=== PATIENT | male | born 1950 | race Caucasian/White ===

== ENCOUNTER 2019-10-22 18:17 | Inpatient (IN) | payer MEDICARE ==
[~2019-10-22] VITALS: Ht 175.3 cm; Wt 96.2 kg
[~2019-10-22 18:17] MED LIST: ASPI-1169 PO; CARV12.52 PO; CLON0.3T PO; CORDURA PO; METF850T PO; NIFE-35 PO; ROPI1TAB2 PO; ROSU10TA2 PO; TRAM50TA2 PO; VALS1TAB52 PO
--- NOTE | 2019-10-22 18:35 | NUR ---
PT CAME INTO THE ED C/O L SIDED CHEST DISCOMFORT, "IRREGULAR HEARTBEAT" HIGH BLOOD PRESSURE SINCE LAST NIGHT. PT AAOX4, VSS, BREWATHING EVEN AND UNLABORED ON ROOM AIR W/ NAD NOTED. PT CONNECTED TO THE MONITOR AND POX
--- NOTE | 2019-10-22 18:37 | NUR ---
EKG AT BEDSIDE
[2019-10-22 18:56] LABS: BASOPHILS # (AUTO) 0.1 /CMM (0.0-0.2); BASOPHILS % (AUTO) 1.1 % (0.0-2.0); EOSINOPHILS % (AUTO) 2.5 % (0.0-6.0); HEMATOCRIT 43 % (39-51); HEMOGLOBIN 14.5 g/dL (13.5-17.5); LYMPHOCYTES # (AUTO) 1.9 /CMM (0.8-4.8); MEAN CORPUSCULAR HGB CONC 33 g/dl (31.0-36.0); MEAN CORPUSCULAR VOLUME 88 fL (80-96); MONOCYTES # (AUTO) 0.5 /CMM (0.1-1.30); MONOCYTES % (AUTO) 5.8 % (2.0-12.0); NEUTROPHILS # (AUTO) 5.1 /CMM (1.8-8.9); NEUTROPHILS % (AUTO) 65.6 % (43.0-81.0); PLATELET COUNT (AUTO) 201 /CMM (150-450); RED BLOOD CELL COUNT(AUTO) 4.93 MIL/uL (4.5-6.0); WHITE BLOOD COUNT (AUTO) 7.7 K/uL (4.3-11.0)
--- NOTE | 2019-10-22 18:57 | NUR ---
BLOOD DRAWN AND SENT TO LAB
--- NOTE | 2019-10-22 19:01 | NUR ---
REPORT GIVEN TO HEMA WREN FOR SHAI
[2019-10-22 19:06] LABS: CALCIUM, SERUM 9.1 mg/dL (8.5-10.1); CREATININE 1.3 mg/dL (0.6-1.3); POTASSIUM 3.3 mmol/L (3.5-5.1)
--- NOTE | 2019-10-22 19:22 | NUR ---
AAOX4. NOT IN ANY DISTRESS. NO SOB. BREATHING EVENLY AND UNLABORED. CONNECTED TO MONITOR.
[2019-10-22 20:00] VITALS: BP 121/73
--- NOTE | 2019-10-22 20:34 | NUR ---
Merrill rosado in ED - 10/22/19 at 2057 by RON REPORT GIVEN TO LUCERO FORD FOR SHAI.
--- NOTE | 2019-10-22 20:34 | NUR ---
REPORT GIVEN TO LUCERO FORD FOR SHAI.
[2019-10-22 21:00] VITALS: BP 131/70
[2019-10-22] MEDS ORDERED: MAGNESIUM HYDROXIDE 30 ML UDC PO PRN (21:00)
[2019-10-22] MEDS ORDERED: Z GUARD REMEDY 2 OZ OINT TP PRN (21:00)
[2019-10-22] MEDS ORDERED: ACETAMINOPHEN 325 MG TABLET PO PRN (21:00)
[2019-10-22] MEDS ORDERED: ZOLPIDEM TARTRATE 5 MG TABLET PO PRN (21:00)
[2019-10-22] MEDS ORDERED: MAG HYDROX/AL HYDROX/SIMETH 30 ML UDC PO PRN (21:00)
[2019-10-22] MEDS ORDERED: ONDANSETRON HCL/PF 4 MG/2 ML VIAL IVP PRN (21:00)
[2019-10-22] MEDS ORDERED: HYDROCODONE/APAP 5/325MG 1 EACH TABLET PO PRN (21:00)
--- NOTE | 2019-10-22 21:30 | NUR ---
MANAGER MILITARYROVING DEPARTMENT END FINDER NOTES ADMITTED A 69 Y/O MALE PATIENT, FROM ER TRANSPORTED VIA GURNEY, ALERT ORIENTED X4, DENIES ANY PAIN OR DISCOMFORT, PERIPHERAL IV ACCESS ON HIS LEFT HAND G#20, INTACT AND PATENT, ORIENTED TO UNIT, HIS ROOM AND THE USE OF CALL LIGHT, CONNECTED TO TELE MONITOR READ SINUS WITH PACs/ AFIB CONTROLLLED, DENIES SOB, SATING 98% ON ROOM AIR, NO SIGNS OF CARDIAC OR RESPIRATORY DISTRESS NOTED, SAFETY MEASURES IN PLACED, ALL NEEDS ATTENDED WILL CONTINUE TO MONITOR ACCORDINGLY.
--- NOTE | 2019-10-22 21:32 | NUR ---
SENIOR TELLER NOTES INITIAL PHYSICAL ASSESSMENT AND DOCUMENTATION INITIATED, SKIN IS INTACT NO SKIN ISSUE NOTED. WILL MONITOR.
[2019-10-22 21:37] LABS: MAGNESIUM 1.6 mg/dL (1.8-2.4); PHOSPHORUS 3.3 mg/dL (2.5-4.9)
[2019-10-22] MEDS: CARVEDILOL 12.5 MG TABLET PO SCH (21:51)
[2019-10-22] MEDS: METFORMIN 850 MG TABLET PO SCH (21:52)
[2019-10-22] MEDS ORDERED: ASPIRIN 325 MG TABLET PO ONE (22:00)
[2019-10-23] VITALS (9 sets, daily range): BP systolic 116–144; BP diastolic 68–92
[2019-10-23] MEDS ORDERED: POTASSIUM CHLORIDE 20 MEQ TAB.PRT.SR PO ONE (01:00)
[2019-10-23] MEDS: Magnesium 1GM/D5W 100ML PREMIX 100 ML IV SCH ×2 (01:04→02:07)
[2019-10-23 06:24] LABS: BASOPHILS % (AUTO) 0.7 % (0.0-2.0); EOSINOPHILS % (AUTO) 6.2 % (0.0-6.0); HEMATOCRIT 39 % (39-51); HEMOGLOBIN 13.3 g/dL (13.5-17.5); LYMPHOCYTES # (AUTO) 2.6 /CMM (0.8-4.8); MEAN CORPUSCULAR HGB CONC 34 g/dl (31.0-36.0); MEAN CORPUSCULAR VOLUME 88 fL (80-96); MONOCYTES # (AUTO) 0.5 /CMM (0.1-1.30); MONOCYTES % (AUTO) 7.5 % (2.0-12.0); NEUTROPHILS # (AUTO) 2.7 /CMM (1.8-8.9); NEUTROPHILS % (AUTO) 43.6 % (43.0-81.0); PLATELET COUNT (AUTO) 188 /CMM (150-450); RED BLOOD CELL COUNT(AUTO) 4.48 MIL/uL (4.5-6.0); WHITE BLOOD COUNT (AUTO) 6.2 K/uL (4.3-11.0)
--- NOTE | 2019-10-23 06:29 | NUR ---
CONTRACT RECRUITER NOTES ALL NEEDS ATTENDED AND MET, ABLE TO REST AND SLEPT AT INTERVALS, MAGNESIUM REPLACED, POTASSIUM REPLACED WITH KDUR TABS 40 MEQS, SAFETY MEASURES IN PLACED, DENIES ANY PAIN OR DISCOMFORT AT THIS TIME, TELE MONITOR READS, SINUS AURORA WITH PACs 58-60s. CALL LIGHT WITH IN EASY REACH. WILL ENDORSE TO AM NURSE FOR CONTINUITY OF CARE.
[2019-10-23 06:41] LABS: ALBUMIN 3.4 g/dL (3.4-5.0); BILIRUBIN,TOTAL 0.5 mg/dL (0.2-1.0); CALCIUM, SERUM 8.5 mg/dL (8.5-10.1); CREATININE 1.3 mg/dL (0.6-1.3); MAGNESIUM 2.1 mg/dL (1.8-2.4); PHOSPHORUS 3.7 mg/dL (2.5-4.9); POTASSIUM 3.6 mmol/L (3.5-5.1); TOTAL PROTEIN, SERUM 6.7 g/dL (6.4-8.2)
--- NOTE | 2019-10-23 07:19 | NUR ---
LITHOPONE MILL WORKER OPENING NOTES PATIENT RECEIVED IN BED AWAKE IN NO ACUTE SIGNS OF DISTRESS. A/O X4. ABLE TO MAKE NEEDS KNOWN, NO C/O PAIN OR ANY DISCOMFORTS AT THIS TIME. VERBALIZED UNDERSTANDING TO NOT CONSUME ANY FOOD OR FLUIDS BEFORE HEALTHCARE ECONOMICS CONSULTANT CHECK UP. ON ROOM AIR, BREATHING EVEN AND UNLABORED. ON TELEMONITORING WITH CURRENT READING OF AFIB CONTROLLED AND SB WITH HR OF 56-60, NO C/O CARDIAC DISTRESS VOICED AT THIS TIME. IV ACCESS ON LEFT HAND G#20 INTACT AND PATENT. BED IN LOW LOCKED POSITION WITH SIDE RAILS UP X2. CALL LIGHT WITHIN REACH. WILL CONTINUE TO MONITOR PT ACCORDINGLY.
[2019-10-23 07:54] LABS: THYROID STIMULATING HORMONE 1.685 uIU/mL (0.358-3.74)
[2019-10-23] MEDS ORDERED: Medication Not On Formulary EA (Rosuvastatin Calcium (Crestor) 1 TAB) PO SCH (09:00)
[2019-10-23] MEDS ORDERED: VALSARTAN 80 MG TABLET PO SCH (09:00)
[2019-10-23] MEDS ORDERED: HYDROCHLOROTHIAZIDE 25 MG TABLET PO SCH (09:00)
[2019-10-23] MEDS: ASPIRIN 81 MG TAB.CHEW PO SCH (09:03)
[2019-10-23] MEDS: CARVEDILOL 12.5 MG TABLET PO SCH ×2 (09:04→21:00)
[2019-10-23] MEDS: NIFEdipine XL (30MG) 30 MG TAB PO SCH (09:05)
[2019-10-23] MEDS: ropiniROLE 0.5 MG TABLET PO SCH (17:25)
--- NOTE | 2019-10-23 18:37 | NUR ---
TELE/RN CLOSING NOTES PATIENT IN BED, AWAKE, WATCHING TV AND USING HIS PHONE. PATIENT IS COMFORTABLE, ON ROOM AIR WITH NO SIGNS OF DISTRESS OR SOB. PATIENT ON CARDIAC MONITORING. CURRENT READING OF SINUS RHYTHM WITH HEART RATE IN THE 60S. NO COMPLAINS OF CARDIAC DISTRESS THROUGHOUT THE DAY. IV SL ON L HAND G#20 IS POTENT AND INTACT. PATIENT IS SCHEDULED FOR CTA WITH CONTRAST PROCEDURE TOMORROW 10/24/19. PATIENT A/O X4, IN CLEAR STATE OF MIND. CONSENT SIGNED AND PATIENT VERBALIZED UNDERSTANDING OF THE PROCEDURE. ALL SAFETY PRECAUTIONS ARE IN PLACE: BED IN LOW POSITION, RAILS UP X2, HOB ELEVATED AT 30, CALL LIGHT WITHIN REACH. WILL ENDORSE TO TURNER OFF.
--- NOTE | 2019-10-23 19:05 | NUR ---
SALESPERSON MEN'S AND BOYS' CLOTHING OPENING NOTES RECEIVED PATIENT IN BED AWAKE ALERT AND ORIENTED X4, RESPIRATIONS EVEN AND UNLABORED WITH EQUAL RISE AND FALL OF CHEST, AT THIS TIME DENIES ANY PAIN OR PALPITATIONS, ON HUMAN GEOGRAPHY INSTRUCTOR SB-SR 58-60, ASYMPTOMATIC. URINAL AT BEDSIDE WITHIN REACH, IV SITE TO LEFT HAND #20G INTACT AND PATENT NO REDNESS NO INFILTRATION PRESENT,ORIENTED TO STAFF AND CALL LIGHT AND KEPT WITHIN REACH, SAFETY PRECAUTIONS IN PLACE LOW BED AND LOCKED, ALL NEEDS ATTENDED AT THIS TIME, WILL CONTINUE TO MONITOR AND ATTEND TO NEEDS, PT IS AWARE AND UNDERSTANDS NPO STATUS FOR AM PROCEDURE.
--- NOTE | 2019-10-23 21:32 | NUR ---
DIVISION OPERATIONS MANAGER NOTES PER HOSPITALIST ELMO CARNES HOLD METFORMIN TONIGHT FOR PROCEDURE IN AM CARDIC CATHETERIZATION, MADE AWARE REGARDING COREG AND HEART RATE AT 58 AT THIS TIME ASYMPTOMATIC AND MADE AWARE OF CURRENT V.S WNL AND COREG DOSE INSTRUCTIONS TO NOTIFY MD IS HR 60 OR LESS, NO FURTHER ORDERS AT THIS TIME.
[2019-10-23] MEDS: METFORMIN 850 MG TABLET PO SCH (21:37)
[2019-10-23] MEDS ORDERED: ATORVASTATIN 10 MG TABLET PO SCH (22:00)
[2019-10-24] VITALS (19 sets, daily range): BP systolic 127–159; BP diastolic 62–99
--- NOTE | 2019-10-24 06:17 | NUR ---
MUSIC ENGRAVER CLOSING NOTES PATIENT IN BED SLEEPING EASILY AROUSABLE, ALERT AND ORIENTED X4, RESPIRATIONS EVEN AND UNLABORED WITH EQUAL RISE AND FALL OF CHEST, AT THIS TIME DENIES ANY PAIN OR PALPITATIONS, ON REGULATORY LEADER SB 58, ASYMPTOMATIC. URINAL AT BEDSIDE WITHIN REACH 400ML OUTPUT, IV SITE TO LEFT HAND #20G INTACT AND PATENT NO REDNESS NO INFILTRATION PRESENT, CALL LIGHT KEPT WITHIN REACH, SAFETY PRECAUTIONS IN PLACE LOW BED AND LOCKED, ALL NEEDS ATTENDED AT THIS TIME, WILL CONTINUE TO MONITOR AND ATTEND TO NEEDS, PT IS AWARE AND UNDERSTANDS NPO STATUS FOR AM PROCEDURE.HAS BEEN NPO SINCE MIDNIGHT, ALL NEEDS WERE ATTENDED. WILL CONTINUE TO MONITOR AND ENDORSE TO NEXT SHIFT.
--- NOTE | 2019-10-24 06:30 | NUR ---
VACUUM CLEANER ASSEMBLER NOTES STATES SKIN IS CLEAR AND FREE OF WOUNDS.
[2019-10-24 06:34] LABS: BASOPHILS % (AUTO) 0.5 % (0.0-2.0); EOSINOPHILS % (AUTO) 6.2 % (0.0-6.0); HEMATOCRIT 41 % (39-51); HEMOGLOBIN 13.8 g/dL (13.5-17.5); LYMPHOCYTES # (AUTO) 2.5 /CMM (0.8-4.8); LYMPHOCYTES % (AUTO) 40.2 % (20.0-44.0); MEAN CORPUSCULAR HGB CONC 34 g/dl (31.0-36.0); MEAN CORPUSCULAR VOLUME 88 fL (80-96); MONOCYTES # (AUTO) 0.4 /CMM (0.1-1.30); MONOCYTES % (AUTO) 6.7 % (2.0-12.0); NEUTROPHILS # (AUTO) 2.9 /CMM (1.8-8.9); NEUTROPHILS % (AUTO) 46.4 % (43.0-81.0); PLATELET COUNT (AUTO) 191 /CMM (150-450); RED BLOOD CELL COUNT(AUTO) 4.66 MIL/uL (4.5-6.0); WHITE BLOOD COUNT (AUTO) 6.3 K/uL (4.3-11.0)
[2019-10-24 06:43] LABS: CALCIUM, SERUM 8.5 mg/dL (8.5-10.1); CREATININE 1.2 mg/dL (0.6-1.3); MAGNESIUM 1.9 mg/dL (1.8-2.4); PHOSPHORUS 3.2 mg/dL (2.5-4.9); POTASSIUM 3.6 mmol/L (3.5-5.1)
--- NOTE | 2019-10-24 07:10 | NUR ---
HIDE AND SKIN COLERER NOTES PATIENT IN BED ALERT ORIENTED X 4.NO ACUTE DISTRESS NOTED. BREATHING UNLABORED. NO SOB NOTED. DENIED ANY PAIN. SAFETY MEASURES IN PLACE. CALL LIGHT WITHIN REACH. WILL CONTINUE TO MONITOR ACCORDINGLY.
[2019-10-24] MEDS: CARVEDILOL 12.5 MG TABLET PO SCH ×2 (09:00→21:15)
[2019-10-24] MEDS ORDERED: HYDROCHLOROTHIAZIDE 25 MG TABLET PO SCH ×2 (09:00)
[2019-10-24] MEDS: ASPIRIN 81 MG TAB.CHEW PO SCH (09:00)
[2019-10-24] MEDS ORDERED: IV SET PRIMARY PUMP SET 1 EA INFUS.SET MC ONE (09:07)
[2019-10-24] MEDS ORDERED: IV NS 0.9% 1,000 ML ONE (09:07)
[2019-10-24] MEDS ORDERED: IODIXANOL 150 ML IV ONE ×2 (09:08→12:19)
--- NOTE | 2019-10-24 09:20 | NUR ---
BEAD FLIPPER NOTES CLARIFIED WITH DR MCKEON REGARDING ASPIRIN , PATIENT FOR CARDIAC CATHETERIZATION, SAID TO HOLD ASPIRIN DOSE TODAY.
--- NOTE | 2019-10-24 09:25 | NUR ---
MS RN NOTES HELD COREG AND HYDRODIURIL DUE TO PULSE RATE 57, DR RAPHAEL NOTIFIED SAID OK.
[2019-10-24] MEDS: NIFEdipine XL (30MG) 30 MG TAB PO SCH (09:27)
[2019-10-24] MEDS: VALSARTAN 80 MG TABLET PO SCH (09:28)
[2019-10-24] MEDS ORDERED: VERAPAMIL HCL IV 5 MG/2 ML VIAL ONE (10:46)
[2019-10-24] MEDS ORDERED: LIDOCAINE HCL/PF 1% 30 ML SDV ONE (10:46)
[2019-10-24] MEDS ORDERED: NITROGLYCERIN ICAR 1,000 MCG/10 ML VIAL ICAR ONE (10:46)
[2019-10-24] MEDS ORDERED: IV NS 0.9% 50 ML IV ONE ×2 (10:47→13:12)
--- NOTE | 2019-10-24 11:00 | NUR ---
PROJECT COACH NOTES PATIENT TRANSPORTED FOR CARDIAC CATHETERIZATION IN STABLE CONDITION. ALERT ORIENTED X 4.
[2019-10-24] MEDS ORDERED: FENTANYL PF 100MCG/2ML AMPUL ONE (11:19)
[2019-10-24] MEDS ORDERED: MIDAZOLAM HCL 2 MG/2ML VIAL ONE (11:19)
[2019-10-24] MEDS ORDERED: HEPARIN SODIUM, PORCINE 5000 UNITS/1 ML VIAL ONE (11:33)
[2019-10-24] MEDS ORDERED: ASPIRIN 325 MG TABLET ONE (12:18)
[2019-10-24] MEDS ORDERED: TICAGRELOR 90 MG TABLET PO ONE (12:18)
[2019-10-24] MEDS ORDERED: IODIXANOL 320MG/ML 50 ML IV ONE (12:19)
[2019-10-24] MEDS ORDERED: IODIXANOL 320MG/ML 100 ML IV ONE (13:27)
--- NOTE | 2019-10-24 14:16 | NUR ---
RN INITIAL NOTES RECEIVED PT AWAKE, A/OX4 FROM BARGE HAND. SP LEFT HEART CATH WITH SELECTIVE LEFT AND RIGHT CORONARY ANGIOGRAPHY. TR BAND ON RIGHT WRIST. NO SIGNS OF BLEEDING NOTED. PALPABLE PULSE NOTED. NO CIRCULATORY IMPAIRMENT NOTED. IV LINE IN PLACE. FLUSHED WITH NS. WILL FOLLOW ALL ORDERS POST CARDIAC CATH PER PROTOCOL. PT ORIENTED TO ROOM AND USE OF CALL LIGHT. WILL CLOSELY MONITOR
--- NOTE | 2019-10-24 14:25 | NUR ---
MS RN NOTES ALL BELONGINGS TAKEN TO THE PATIENT IN ICU ROOM 254.
[2019-10-24] MEDS: IV NS 0.9% 1,000 ML IV PRN ×2 (14:42→17:30)
[2019-10-24] MEDS ORDERED: IV NS 0.9% 1,000 ML BAG IV PRN (15:00)
--- NOTE | 2019-10-24 16:35 | NUR ---
RN NOTES TR BAND ON RIGHT WRIST COMPLETELY REMOVED. NO ACTIVE BLEEDING NOTED. GOOD PALPABLE PULSE NOTED. NO CIRCULATORY IMPAIRMENT NOTED. COVERED WITH DRY DRESSING. VS WNL. WILL MONITOR
[2019-10-24] MEDS: ropiniROLE 0.5 MG TABLET PO SCH (17:10)
--- NOTE | 2019-10-24 18:33 | NUR ---
RN CLOSING NOTES NO SIGNIFICANT CHANGE NOTED. PT A/OX4, ON ROOM AIR. NO SOB NOTED. DENIES ANY PAIN. SP LEFT HEART CATH WITH SELECTIVE LEFT AND RIGHT CORONARY ANGIOGRAPHY. NO SIGNS OF BLEEDING ON RIGHT WRIST. GOOD PALPABLE PULSE. NO CIRCULATORY IMPAIRMENT NOTED. IVF INFUSING. KEPT COMFORTABLE. ALL NEEDS ATTENDED AND MET. WILL PLACE NPO POST MIDNIGHT FOR POSSIBLE HEART CATH IN AM. CALL LIGHT WITHIN REACH. WILL ENDORSE TO CONTINUITY OF CARE.
[2019-10-24] MEDS: TICAGRELOR 90 MG TABLET PO SCH (18:45)
--- NOTE | 2019-10-24 20:00 | NUR ---
TOY DEPARTMENT MANAGER - NOTES - PT A/OX4, ON ROOM AIR. NO SOB NOTED. DENIES ANY PAIN. SP LEFT HEART CATH WITH SELECTIVE LEFT AND RIGHT CORONARY ANGIOGRAPHY. NO SIGNS OF BLEEDING ON RIGHT WRIST. GOOD PALPABLE PULSE. NO CIRCULATORY IMPAIRMENT NOTED. IVF INFUSING. KEPT COMFORTABLE. ALL NEEDS ATTENDED AND MET. WILL PLACE NPO POST MIDNIGHT FOR POSSIBLE HEART CATH IN AM. CALL LIGHT WITHIN REACH. WILL ENDORSE TO CONTINUITY OF CARE.
[2019-10-24] MEDS: METFORMIN 850 MG TABLET PO SCH (21:15)
[2019-10-24] MEDS: ATORVASTATIN 40 MG TABLET PO SCH (21:15)
[2019-10-25] VITALS (23 sets, daily range): BP systolic 108–157; BP diastolic 49–91
[2019-10-25 04:21] LABS: BASOPHILS # (AUTO) 0.1 /CMM (0.0-0.2); BASOPHILS % (AUTO) 0.7 % (0.0-2.0); EOSINOPHILS % (AUTO) 4.6 % (0.0-6.0); HEMATOCRIT 41 % (39-51); HEMOGLOBIN 13.8 g/dL (13.5-17.5); LYMPHOCYTES # (AUTO) 2.2 /CMM (0.8-4.8); MEAN CORPUSCULAR HGB CONC 34 g/dl (31.0-36.0); MEAN CORPUSCULAR VOLUME 89 fL (80-96); MONOCYTES # (AUTO) 0.6 /CMM (0.1-1.30); MONOCYTES % (AUTO) 6.5 % (2.0-12.0); NEUTROPHILS # (AUTO) 5.5 /CMM (1.8-8.9); NEUTROPHILS % (AUTO) 63.2 % (43.0-81.0); PLATELET COUNT (AUTO) 203 /CMM (150-450); RED BLOOD CELL COUNT(AUTO) 4.62 MIL/uL (4.5-6.0); WHITE BLOOD COUNT (AUTO) 8.6 K/uL (4.3-11.0)
[2019-10-25 04:35] LABS: CALCIUM, SERUM 8.4 mg/dL (8.5-10.1); CREATININE 1.1 mg/dL (0.6-1.3); POTASSIUM 3.7 mmol/L (3.5-5.1)
[2019-10-25] MEDS: IV NS 0.9% 1,000 ML IV PRN ×2 (05:26→09:10)
[2019-10-25] MEDS ORDERED: IODIXANOL 150 ML IV ONE (06:18)
[2019-10-25] MEDS ORDERED: IV NS 0.9% 1,000 ML ONE (06:21)
[2019-10-25] MEDS ORDERED: IV SET PRIMARY PUMP SET 1 EA INFUS.SET MC ONE (06:22)
[2019-10-25] MEDS ORDERED: IV NS 0.9% 50 ML IV ONE (06:24)
[2019-10-25] MEDS ORDERED: HEPARIN SODIUM, PORCINE 5000 UNITS/1 ML VIAL ONE (06:47)
[2019-10-25] MEDS ORDERED: ropiniROLE 0.5 MG TABLET PO STA (06:47)
[2019-10-25] MEDS ORDERED: VERAPAMIL HCL IV 5 MG/2 ML VIAL ONE (06:47)
[2019-10-25] MEDS ORDERED: NITROGLYCERIN ICAR 1,000 MCG/10 ML VIAL ICAR ONE (06:48)
[2019-10-25] MEDS ORDERED: LIDOCAINE HCL/PF 1% 30 ML SDV ONE (06:56)
--- NOTE | 2019-10-25 06:56 | NUR ---
pt awake alert going for heart cath right now, pt has his phone with him, the rest of his belongings are at bedside
[2019-10-25] MEDS ORDERED: IODIXANOL 320MG/ML 50 ML IV ONE (06:57)
[2019-10-25] MEDS ORDERED: MIDAZOLAM HCL 2 MG/2ML VIAL ONE (07:00)
[2019-10-25] MEDS ORDERED: FENTANYL PF 100MCG/2ML AMPUL ONE (07:00)
[2019-10-25] MEDS ORDERED: ASPIRIN 81 MG TAB.CHEW ONE (07:13)
[2019-10-25] MEDS ORDERED: TICAGRELOR 90 MG TABLET PO ONE (07:13)
[2019-10-25] MEDS: TICAGRELOR 90 MG TABLET PO SCH (07:15)
[2019-10-25] MEDS: ASPIRIN 81 MG TAB.CHEW PO SCH (07:15)
[2019-10-25] MEDS ORDERED: IV NS 0.9% 250 ML IV ONE (07:54)
[2019-10-25] MEDS ORDERED: NOREPINEPHRINE 4 MG/4 ML AMPUL IV ONE ×2 (07:55→08:02)
[2019-10-25] MEDS ORDERED: IV D5W 0 ML IV ONE (08:05)
[2019-10-25] MEDS ORDERED: IODIXANOL 320MG/ML 100 ML IV ONE (08:06)
[2019-10-25] MEDS: CARVEDILOL 12.5 MG TABLET PO SCH ×2 (09:00→21:15)
[2019-10-25] MEDS: VALSARTAN 80 MG TABLET PO SCH (09:10)
[2019-10-25] MEDS: NIFEdipine XL (30MG) 30 MG TAB PO SCH (09:11)
--- NOTE | 2019-10-25 11:08 | NUR ---
RN NOTE 0700: Received report from previous shift nurse. Patient is on Cardiac cath procedure. 0900: Patient back to room form cardiac cath, A/Ox4. With right TR band reading 13mL of air per Carmen GARRIDO, to be deflated 3-5mL by 1035. 0920: Served cardiac diet as ordered, advised patient not to move right hand much for now, patient verbalized understanding. Restarted on IVF NS @ 150. Noted with 300mL tan colored urine, able to use urinal. 1000: Noted with minimal bleeding, placed 1mL air, total of 14mL. Right hand still noted with sensory and able to move fingers. 1045: Removed 3mL, now 11mL air on TR band. 1100: Removed 3mL, now 8mL on TR band, noted with very minimal bleeding, will monitor.
--- NOTE | 2019-10-25 13:50 | NUR ---
RN NOTE 1145: Removed TR band, no bleeding noted, applied small dry and transparent dressing. Will continue to monitor. Patient has been talking to CM and CM talking to Dr. Alvarado re: Kartik, but patient wanted to change to Plavix instead, MD aware. 1330: No any significant changes noted. Kept clean, warm and dry. Needs attended. Kept call light at reach, will continue to monitor.
[2019-10-25] MEDS ORDERED: CLOPIDOGREL BISULFATE 300 MG TABLET PO ONE (17:00)
[2019-10-25] MEDS ORDERED: CLOPIDOGREL BISULFATE 75 MG TABLET PO ONE (17:00)
--- NOTE | 2019-10-25 18:23 | NUR ---
RN NOTE No any significant changes noted. VSS. No c/o CP or any discomfort. Tolerated diet. No bleeding on the right radial SP cardiac cath site. Does not want to have Requip at this time and wants to take it later, will leave the 1800 dose open to be given later.
--- NOTE | 2019-10-25 20:00 | NUR ---
RN NOTES RECEIVED PATIENT AWAKE ON BED, AOX 4 SR ON TELE MONITOR. NO SOB OR COMPLAINED OF PALPITATION NOR CHEST PAIN AT THIS TIME. PATIENT IS HURRIEDLY WANTED TO GO TO THE BATHROOM FOR BM ASSISTED TO THE BATHROOM AND AMBULATE WELL. RIGHT RADIAL CLEAN AND WITH DRESSING INTACT AND NO BLEEDING. WITH IV SITE ON LH G20 HL. INTACT AND PATENT. PATIENT IS ASSISTED TO THE BATHROOM AND GO BACK TO BED IN STABLE CONDITION NO CHANGE MENTAL STATUS. KEPT PT CLEAN AND DRY. INSTRUCTED TO USE CALL LIGHT FOR ASSISTANCE AND VERBALIZED UNDERSTANDING. WILL CONTINUE TO MONITOR.
[2019-10-25] MEDS: ropiniROLE 0.5 MG TABLET PO SCH (21:14)
[2019-10-25] MEDS: METFORMIN 850 MG TABLET PO SCH (21:14)
[2019-10-25] MEDS: ATORVASTATIN 40 MG TABLET PO SCH (21:16)
[2019-10-26] VITALS (11 sets, daily range): BP systolic 105–146; BP diastolic 56–90
[2019-10-26] MEDS ORDERED: INSULIN REGULAR, HUMAN 100 UNIT/ML 3 ML VIAL SQ ONE (01:30)
[2019-10-26 04:25] LABS: BASOPHILS % (AUTO) 0.5 % (0.0-2.0); EOSINOPHILS % (AUTO) 4.1 % (0.0-6.0); HEMATOCRIT 38 % (39-51); LYMPHOCYTES # (AUTO) 2.1 /CMM (0.8-4.8); LYMPHOCYTES % (AUTO) 28.3 % (20.0-44.0); MEAN CORPUSCULAR HGB CONC 34 g/dl (31.0-36.0); MEAN CORPUSCULAR VOLUME 88 fL (80-96); MONOCYTES # (AUTO) 0.4 /CMM (0.1-1.30); MONOCYTES % (AUTO) 5.6 % (2.0-12.0); NEUTROPHILS # (AUTO) 4.6 /CMM (1.8-8.9); NEUTROPHILS % (AUTO) 61.5 % (43.0-81.0); PLATELET COUNT (AUTO) 195 /CMM (150-450); RED BLOOD CELL COUNT(AUTO) 4.33 MIL/uL (4.5-6.0); WHITE BLOOD COUNT (AUTO) 7.5 K/uL (4.3-11.0)
[2019-10-26 04:37] LABS: CREATININE 1.1 mg/dL (0.6-1.3); POTASSIUM 3.5 mmol/L (3.5-5.1)
--- NOTE | 2019-10-26 07:00 | NUR ---
RN NOTES PATIENT ASLEEP WELL ON BED. BREATHING EVEN AND UNLABORED. VSS. NSR ON TELE MONITOR. NO SOB OR DISTRESS ON ROOM AIR. AFEBRILE. AMBULATE TO THE BATHROOM FOR BOWEL. ALL DUE MEDICINE ADMINISTERED ORDERED. KEPT PT CLEAN AND DRY. ALL NEEDS ATTENDED. CALL LIGHT KEPT WITHIN EASY REACH.
[2019-10-26] MEDS: POTASSIUM CHLORIDE 20 MEQ TAB.PRT.SR PO SCH ×2 (07:19→08:35)
[2019-10-26] MEDS ORDERED: PNEUMOCOCCAL 23-VAL P-SAC VAC 0.5 ML VIAL SQ ONE (08:30)
[2019-10-26] MEDS ORDERED: INFLUENZA VACCINE 2019-20 0.5 ML DISP.SYRIN IM ONE (08:30)
[2019-10-26] MEDS: ASPIRIN 81 MG TAB.CHEW PO SCH (08:35)
[2019-10-26] MEDS: NIFEdipine XL (30MG) 30 MG TAB PO SCH (08:35)
[2019-10-26] MEDS: CARVEDILOL 12.5 MG TABLET PO SCH (08:36)
[2019-10-26] MEDS: VALSARTAN 80 MG TABLET PO SCH (08:36)
[2019-10-26] MEDS ORDERED: CLOPIDOGREL BISULFATE 75 MG TABLET PO SCH (09:00)
--- NOTE | 2019-10-26 09:46 | NUR ---
07-RECEIVED PATIENT FROM RN.DR ANTONIO SPOKE TO PATIENT REGARDING PLAN OF CARE, PATIENT IS CLEARED FOR DISCHARGE BY DR ANTONIO. PATIENT AWAKE, ALERT, DENIES PAIN, NO BLEED NOTED . PER REPORT, PATIENT AMBULATED LAST NIGHT. 929-AWAKE, ALERT. NO SIGN OF PAIN.
[2019-10-26] MEDS ORDERED: CLOP75TA15 PO (10:08)
[2019-10-26] MEDS ORDERED: ROSU20TA2 PO (10:08)
--- NOTE | 2019-10-26 13:17 | NUR ---
RN NOTES 1100- PATIENT SEEN BY DR. MICK MD DISCUSSED WITH PATIENT PLAN OF CARE. PATIENT WANTING TO GO HOME. INSTRUCTIONS GIVEN TO PATIENT. NO BLEEDING NOTED. 1315-PATIENT FOR HOME. DR CARRANZA SPOKE TO PATIENT ABOUT PATIENT MEDS. PATIENT VERBALIZED UNDERSTANDING WHEN REVIEWED WITH HIM Addendum: 10/26/19 at 1333 by GRAZYNA KELLEY RN ADDENDUM: PER DOCTOR BARTON, PATIENT MAY GO HOME BY HIMSELF
== END 2019-10-26 13:07 | disposition home or self-care (01) | DRG 247 ==
LOC: ER 18:17 → TELE 20:11 → MED 10-24 09:33 → ICU 10-24 11:04
PROVIDERS: ADMIT Hospitalist; ATTEND Family Medicine
PROC: 4A023N7 Measurement of Cardiac Sampling and Pressure, Left Heart, Percutaneous Approach (ICD-10-PCS; principal; 2019-10-24)
PROC: 0270356 Dilation of Coronary Artery, One Artery, Bifurcation, with Two Drug-eluting Intraluminal Devices, Percutaneous Approach (ICD-10-PCS; 2019-10-24)
PROC: 02703ZZ Dilation of Coronary Artery, One Artery, Percutaneous Approach (ICD-10-PCS; 2019-10-24)
PROC: B211YZZ Fluoroscopy of Multiple Coronary Arteries using Other Contrast (ICD-10-PCS; 2019-10-24)
PROC: 027034Z Dilation of Coronary Artery, One Artery with Drug-eluting Intraluminal Device, Percutaneous Approach (ICD-10-PCS; 2019-10-25)
PROC: 4A023N7 Measurement of Cardiac Sampling and Pressure, Left Heart, Percutaneous Approach (ICD-10-PCS; 2019-10-25)
PROC: B211YZZ Fluoroscopy of Multiple Coronary Arteries using Other Contrast (ICD-10-PCS; 2019-10-25)
DX: I21.4 Non-ST elevation (NSTEMI) myocardial infarction (principal); R00.0 Tachycardia, unspecified; I25.10 Atherosclerotic heart disease of native coronary artery without angina pectoris; I10 Essential (primary) hypertension; E87.6 Hypokalemia; E83.42 Hypomagnesemia; E78.5 Hyperlipidemia, unspecified; N40.0 Benign prostatic hyperplasia without lower urinary tract symptoms; E11.65 Type 2 diabetes mellitus with hyperglycemia; G25.81 Restless legs syndrome; F32.9 Major depressive disorder, single episode, unspecified; Z87.891 Personal history of nicotine dependence; E66.9 Obesity, unspecified; Z68.31 Body mass index [BMI] 31.0-31.9, adult; R79.89 Other specified abnormal findings of blood chemistry; G47.33 Obstructive sleep apnea (adult) (pediatric); I16.0 Hypertensive urgency
CPT/HCPCS: 36415; 71045-TC; 80048-TC; 80053-TC; 80061-TC; 83735-TC; 84100-TC; 84443-TC; 84484-TC; 85025-TC; 85610-TC; 85730-TC; 87081-TC; 90732; 92980; 92981; 92982; 93307-TC; 93452; A4216; C1725; C1887; G0378; J1644; J1815; J2250; J3010; J3475; J3490; J7030; J7050; J7060; Q2036; Q9967